=== PATIENT | female | born 1990 | race Caucasian/White ===

== ENCOUNTER 2016-09-25 17:13 | Emergency (ER) | payer OTHER ==
[2016-09-25 17:23] VITALS: BMI 35.5
[2016-09-25 21:38] VITALS: BP 134/74; PULSE 87; TEMP 98.1
== END 2016-09-25 21:30 | disposition home or self-care (01) ==
LOC: JER 17:13
DX: O26.892 Other specified pregnancy related conditions, second trimester (principal); R10.2 Pelvic and perineal pain; Z3A.22 22 weeks gestation of pregnancy
CPT/HCPCS: 99281-25